=== PATIENT | male | born 1955 | race Caucasian/White ===

== ENCOUNTER 2023-01-28 13:45 | Outpatient (RCR) | payer OTHER, SELFPAY | END 2023-01-28 23:59 | disposition home or self-care (01) | LOC: RST 13:45 | PROVIDERS: ATTENDING PHYSICIAN Physical Medicine & Rehabilitation; FAMILY PHYSICIAN Family Medicine | DX: I69.398 Other sequelae of cerebral infarction (principal); R26.89 Other abnormalities of gait and mobility | CPT/HCPCS: 97110; 97112; 97530; 97535 ==

== ENCOUNTER → 2023-03-12 10:37 | Outpatient (REF) | payer MEDICARE, OTHER, SELFPAY | LOC: HWRAD 10:37 | PROVIDERS: ATTENDING PHYSICIAN Surgery; FAMILY PHYSICIAN Family Medicine | DX: K40.20 Bilateral inguinal hernia, without obstruction or gangrene, not specified as recurrent (principal) | CPT/HCPCS: 74177; Q9967 ==

== ENCOUNTER 2023-03-25 06:00 | Day surgery (SDC) | payer MEDICARE, OTHER, SELFPAY ==
--- NOTE | 2023-03-20 12:39 | PTCARENOTE ---
Patients 2/ EKG abnormal- reviewed by Dr. Terrell- requests PCP or Cardio eval. Obdulia @ Dr. Newberry office notified
[2023-03-20 14:20] VITALS: BMI 30.8
[2023-03-25] VITALS (13 sets, daily range): BP systolic 107–160; BP diastolic 71–92; BMI 30.8
[2023-03-25] MEDS: TYLENOL 1000 MG PO (06:29)
[2023-03-25] MEDS: NORMOSOL-R 1000 IV (06:56)
--- NOTE | 2023-03-25 06:58 | PTCARENOTE ---
Patient did not have a ride home or anyone available to him at home. Dr. Almaguer contacted and orders to keep patient overnight. Patient agreeable and MD made aware.
--- NOTE | 2023-03-25 09:33 | OR.RPT ---
Operative Report
Operative Report
Primary Surgeon: Rosina
Assisting: Jacob FERNANDES
Pre-op Diagnosis: Bilateral inguinal hernias
Post-op Diagnosis: Bilateral incarcerated inguinal hernias
Procedure Performed: Robot assisted laparoscopic repair of Bilateral incarcerated inguinal hernias
Anesthesia Type: GETA
Specimen / Cultures: None
Estimated Blood Loss: 10cc
Complications: None immediate
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
Date of surgery: 03/25/23
Indications:� This 67M developed�bilateral inguinal hernia.�Robot assisted laparoscopic repair was planned. Preoperative imaging showed left colon involvement, bowel prep was completed.
Description of procedure:� The patient was taken to the operating room and positioned into supine position. The patient�s abdomen was prepped and draped in standard sterile fashion. A time-out was completed verifying correct patient, procedure,
site, positioning, and implants and special equipment prior to beginning this procedure.� A stab incision was made in the left upper quadrant, a Veress needle was inserted and proper position was confirmed by aspiration and saline drop test.
Following this, pneumoperitoneum was created with insufflation of carbon dioxide to 12 mmHg. Then a 8mm robotic trocar was inserted above and to the left of the umbilicus. A laparoscope was inserted and the area of initial trocar entry and Veress
needle placement were both inspected and no injuries were found. Two 8mm trocars were then placed lateral to the rectus sheath under direct visualization.
Both inguinal regions were inspected and the median umbilical ligament, medial umbilical ligament, and lateral umbilical fold were identified. Left groin was inspected and several loops of incarcerated bowel were reduced with external pressure and
gentle traction without grasping the bowel. Attention was turned to the right groin. The peritoneum was incised transversely above the defect and a flap was developed in the caudad direction. Shiv�s ligament was identified ultimately dissected to
its junction with the iliac vein and the space of Retzius was developed bluntly.� The dissection was continued inferiorly to the iliopubic tract, with care taken to avoid injury to the femoral branch of the genitofemoral nerve and the lateral
femoral cutaneous nerve. The cord structures were parietalized.
The direct space was inspected and a hernia was identified and reduced by gentle traction. The pseudosac was everted and sutured to Shiv's ligament with 2-0 vicryl suture. The femoral space was inspected and no hernia was identified.� The indirect
space was inspected and large defect with a deep sac and incarcerated fat was identified and reduced by gentle traction.
Attention was turned to the left groin and the above process was repeated. A large indirect defect was reduced. No cord lipoma was identified in the canal. The colon was inspected and no injuries were identified.
Extra large right and left MID 3D max mesh was passed through a trocar. The mesh was placed into the preperitoneal space and moved into position to lay flat and completely cover the direct, indirect, and femoral spaces with overlap at the midline.
The mesh was secured into place using 2-0 vicryl suture to Sihv�s ligament medially and laterally. Care was taken to avoid the inferolateral triangles containing the iliac vessels and genital nerves.
The peritoneal flap was closed over the mesh and secured with 2-0 monocryl stratafix suture in similar positions of safety. A 14g angiocath was used to decompress the preperitoneal space revealing good seal and all mesh in good position without
folding or curling. After ensuring adequate hemostasis, the trocars were removed and the pneumoperitoneum allowed to escape. The trocar incisions were closed at the skin level using 4-0 monocryl and topical skin adhesive. The patient tolerated the
procedure well and was taken to the postanesthesia care unit in stable condition.
I was present for and performed all beckman portions of the procedure. The resident assisted with access, exposure and skin closure.�
[2023-03-25] MEDS: ROXICODONE 5 MG PO (19:52)
[2023-03-26 03:00] VITALS: BP 117/66
[2023-03-26 07:08] VITALS: BP 141/83
--- NOTE | 2023-03-26 09:52 | CM ---
Reviewed the chart notes and spoke with the patient at the bedside. The patient resides alone in a one story home with two steps to enter. The patient reports no DME or VN in the past, but has been to [facility]. The patient confirmed his pharmacy
of choice [facility] The patient anticipates being discharged to home today with no additional needs being identified at this time. The patient drove self to hospital. CM continues to be available to patient/family and is
monitoring medical plan for needs at discharge.
Plan: Discharge to home when medically stable.
--- NOTE | 2023-03-26 10:36 | PTCARENOTE ---
Patient discharged post b/l hernia repair.Patient insisted he was driving himself.I cautioned him to be careful and explained that he should not be lifting or doing anything strenuous.The patient insisted that he was fine and that he would be able
to drive himself home without a problem.
== END 2023-03-26 10:39 | disposition home or self-care (01) ==
LOC: SDS 06:00
PROVIDERS: ATTENDING PHYSICIAN Surgery; FAMILY PHYSICIAN Family Medicine
DX: K40.00 Bilateral inguinal hernia, with obstruction, without gangrene, not specified as recurrent (principal)
CPT/HCPCS: 49650; 36415; 93005; C1781

== ENCOUNTER → 2025-01-21 10:07 | Outpatient (REF) | payer MEDICARE, SELFPAY | LOC: HWRAD 10:07 | PROVIDERS: ATTENDING PHYSICIAN Family Medicine | DX: Z87.891 Personal history of nicotine dependence (principal) | CPT/HCPCS: 71271 ==

== ENCOUNTER → 2025-01-22 07:55 | Outpatient (REF) | payer MEDICARE, OTHER, SELFPAY | LOC: RAD 07:55 | PROVIDERS: ATTENDING PHYSICIAN Family Medicine | DX: Z87.891 Personal history of nicotine dependence (principal); Z13.6 Encounter for screening for cardiovascular disorders | CPT/HCPCS: 76770 ==